=== PATIENT | female | born 1985 | race Hispanic/Latino ===

== ENCOUNTER → 2016-07-16 | Outpatient (CLI) | payer OTHER ==
[~2016-07-16] MED LIST: PREN1TAB39
--- NOTE | 2016-07-16 14:51 | Diagnostic Imaging Report ---
PROCEDURE: US OB SINGLE FETUS <14 WKS. INDICATION: Undergoing evaluation for size and dates. TECHNIQUE: Multiple real-time grayscale images were obtained of the gravid uterus transabdominally. CORRELATION STUDY: None. FINDINGS: Uterus measuring 14.3 x 8.1 x 8.4 cm, mildly prominent. There is presence of an intrauterine fluid collection compatible with gestational sac. No abnormal perigestational fluid collections. pole is present with a crown-rump length measuring 1.95 cm with estimated age of 8 weeks 4 days. This corresponds to estimated date of delivery 02/21/2017. cardiac activity at 176 beats per minute. Imaging of the adnexa is very limited with nonvisualization of either ovary. IMPRESSION: Early viable intrauterine , estimated age of 8 weeks 4 days for an estimated date of delivery 02/21/2017. Dictated by: Dictated on workstation # [id number]
== END ==
LOC: RAD 10:56
PROVIDERS: ATTEND Family Medicine
DX: Z34.81 Encounter for supervision of other normal pregnancy, first trimester (principal)
CPT/HCPCS: 76801

== ENCOUNTER → 2016-08-06 | Outpatient (CLI) | payer OTHER ==
--- NOTE | 2016-08-06 16:39 | Diagnostic Imaging Report ---
PROCEDURE: US OB single fetus <14 wks. TECHNIQUE: Multiple real-time grayscale images were obtained over the gravid uterus in various projections. INDICATION: care first trimester. Could not get heart tones in doctor's office. FINDINGS: There is a single intrauterine . The cardiac activity in the embryo is at 167 beats per minutes. The crown-rump length is at 12 weeks and 0 days. This would correspond with CATA of 02/18/17. There is a mass in the anterior myometrium in the fundal region with slight subserosal component, measuring 7.4 x 5.2 x 7.0 cm, most likely related to a fibroid. The ovaries are obscured by bowel gas. IMPRESSION: 1. Live single intrauterine . 2. A 7.4 cm mass in the anterior myometrium most likely related to fibroids. Dictated by: Dictated on workstation # [id number]
== END ==
LOC: RAD 16:06
PROVIDERS: ATTEND Family Medicine
DX: Z36 Encounter for antenatal screening of mother (principal); Z3A.12 12 weeks gestation of pregnancy; D25.9 Leiomyoma of uterus, unspecified
CPT/HCPCS: 76801

== ENCOUNTER → 2016-10-31 | Outpatient (CLI) | payer OTHER ==
--- NOTE | 2016-10-31 14:21 | Diagnostic Imaging Report ---
INDICATION: survey. TECHNIQUE: Multiple real-time grayscale images were obtained over the gravid uterus. COMPARISON: None FINDINGS: Single live intrauterine fetus. Fetus is currently transverse and active. head to maternal left. heart rate of 153 beats per minute. Placenta is anterior and not low. Amniotic fluid index is normal. survey is quite limited due to position and large maternal body habitus. kidneys and bladder are visualized and normal. stomach appears normal. spine is well visualized and normal. Biometrical measurements are as follows: Biparietal 6.2 cm, age 25 weeks 0 days. Head circumference 23.1 cm, age 25 weeks 1 days. Abdominal circumference 20.8 cm, age 25 weeks 3 days. Femur length 4.4 cm, age 24 weeks 3 days. Sonographic estimate age: 25 weeks 0 days. Sonographic estimated date of delivery: 02/13/17. Estimated Weight: 150 gm (+/- 109 gm). LMP percentile: 70%. heart rate: 153 beats per minute. number: 1 of 1. IMPRESSION: 1. Ultrasound measurements are average for 25 weeks 0 days on the current study. Previous ultrasound indicates 24 week 2 day . Sonographic EDC of 02/18/2017. 2. Very limited survey as described above due to transverse prone position and large maternal body habitus. Dictated by: Dictated on workstation # [id number]
== END ==
LOC: RAD 12:53
PROVIDERS: ATTEND Family Medicine
DX: Z36 Encounter for antenatal screening of mother (principal); Z3A.25 25 weeks gestation of pregnancy
CPT/HCPCS: 76805

== ENCOUNTER 2017-01-27 05:50 | Outpatient (CLI) | payer OTHER ==
[~2017-01-27] VITALS: Ht 147.3 cm; Wt 96.7 kg
[2017-01-27] VITALS (15 sets, daily range): BP systolic 92–172; BP diastolic 52–99
[2017-01-27 07:05] LABS: KETONES,URINE 1+ (NEGATIVE); LEUKOCYTE ESTERASE ,URINE 1+ (NEGATIVE); NITRITE,URINE NEGATIVE (NEGATIVE); PH,URINE 6.5 (5-9); PROTEIN,URINE 2+ (NEGATIVE); UROBILINOGEN,URINE 12 MG/DL (NORMAL)
[2017-01-27 07:16] LABS: BILIRUBIN,URINE 2+ (NEGATIVE); CALCIUM OXALATE CRYSTALS,UR LARGE /LPF
[2017-01-27 08:15] LABS: BASOPHILS % (AUTO) 0 % (0-10); EOSINOPHILS # (AUTO) 0.1 10^3/uL (0.0-0.3); EOSINOPHILS % (AUTO) 1 % (0-10); LYMPHOCYTES # (AUTO) 1.4 X 10^3 (1.0-4.0); LYMPHOCYTES % (AUTO) 14 % (12-44); MEAN CORPUSCULAR HEMOGLOBIN 32 PG (25-34); MEAN CORPUSCULAR HGB CONC 35 G/DL (32-36); MEAN CORPUSCULAR VOLUME 94 FL (80-99); MEAN PLATELET VOLUME 10.5 FL (7.4-10.4); MONOCYTES # (AUTO) 0.7 X 10^3 (0.0-1.0); MONOCYTES % (AUTO) 7 % (0-12); NEUTROPHILS # (AUTO) 7.4 X 10^3 (1.8-7.8); NEUTROPHILS % (AUTO) 78 % (42-75); PLATELET COUNT 251 10^3/uL (130-400); RED CELL DISTRIBUTION WIDTH 12.4 % (10.0-14.5); WHITE BLOOD COUNT 9.5 10^3/uL (4.3-11.0)
[2017-01-27 08:36] LABS: ALANINE AMINOTRANSFERASE 26 U/L (0-55); ALBUMIN 3.2 GM/DL (3.2-4.5); ANION GAP 9 MMOL/L (5-14); ASPARTATE AMINO TRANSFERASE 17 U/L (5-34); BILIRUBIN,TOTAL 0.4 MG/DL (0.1-1.0); BLOOD UREA NITROGEN 8 MG/DL (7-18); BUN/CREATININE RATIO 14; CALCIUM 8.9 MG/DL (8.5-10.1); CARBON DIOXIDE 19 MMOL/L (21-32); CHLORIDE 107 MMOL/L (98-107); CREATININE SERUM 0.59 MG/DL (0.60-1.30); GFR ESTIMATED > 60; GLUCOSE 79 MG/DL (70-105); POTASSIUM 3.9 MMOL/L (3.6-5.0); SODIUM 135 MMOL/L (135-145); TOTAL PROTEIN 6.4 GM/DL (6.4-8.2); URIC ACID 4.6 MG/DL (2.6-7.2)
[2017-01-27 09:02] LABS: PROTEIN/CREATININE RATIO 0.48
[2017-01-27] MEDS ORDERED: morphine INJ 10 MG/ML 1ML (SYR OR VIAL) IVP ONE (10:00)
[2017-01-27] MEDS ORDERED: NS IV 500 ML 500 ML IV SCH (10:00)
[2017-01-27] MEDS ORDERED: morphine INJ 10 MG/ML 1ML (SYR OR VIAL) IJ ONE (10:00)
[2017-01-27] MEDS ORDERED: LACTATED RINGERS 1,000 ML IV SCH (11:00)
[2017-01-27] MEDS ORDERED: INFLUENZA TRIvalent 2017-2018 0.5 ML/45 MCG SYR IM ONE (12:15)
[2017-01-27] MEDS ORDERED: PREN1TAB86 PO (14:22)
--- NOTE | 2017-01-27 15:10 | Consultation ---
History of Present Illness History of Present Illness Patient Consulted On([place]olina/time) 01/27/17 15:05 Date Seen by Provider: Jan 27, 2017 Time Seen by Provider: 12:00 Reason for Visit: Contractions History of Present Illness This 31 yo female is a consult from Dr. Martinez for PTC, and concern for preE. He reports that she was being follow for BP elevations in the office but this has been more recent in the last couple of visit. Reports history of 2 cesareans. She reports having regular painful contractions that started this AM , but upon my consultation IVF bolus was administered and Morphine rest was given and now the patient reports no further pain, and no contractions. Denies LOF, VB. Denies headache, vision changes, CP, SOB. Denies any other complications with the thus far. However, according to Dr. Martinez her PNC has been somewhat limited. Allergies and Home Medications Allergies Coded Allergies: NKANo Known Allergies (Unverified Allergy, Mild, 06/20/09) Home Medications Vit W-Ca,Fe,FA(<1 mg) 1 Each Tablet, 1 EACH PO DAILY, (Reported) Past Uacsiwb-Zetwed-Flkmzc Hx Patient Social History Alcohol Use: Denies Use Recreational Drug Use: No Smoking Status: Never a Smoker Recent Foreign Travel: No Contact w/Someone Who Travel: No Recent Infectious Disease Expo: No Recent Hopitalizations: No Seasonal Allergies Seasonal Allergies: No Surgeries History of Surgeries: Yes (CS x 2) Respiratory History of Respiratory Disorde: No Cardiovascular History of Cardiac Disorders: No Neurological History of Neurological Disord: No Reproductive System Expected Date of Delivery: Feb 21, 2017 Hx : 3 Hx Para: 2 Hx Total # of Abortions (Spona: 0 Hx Reproductive Disorders: No Genitourinary History of Genitourinary Disor: No Gastrointestinal History of Gastrointestinal Di: No Musculoskeletal History of Musculoskeletal Dis: No Endocrine History of Endocrine Disorders: No HEENT History of HEENT Disorders: No Cancer History of Cancer: No Psychosocial History of Psychiatric Problem: No Integumentary History of Skin or Integumenta: No Blood Transfusions History of Blood Disorders: No Family Medical History Family Medial History: Patient reports no known family medical history. Review of Systems-General Constitutional: see HPI EENTM: see HPI Respiratory: see HPI Cardiovascular: see HPI Gastrointestinal: see HPI Genitourinary: see HPI : Yes Expected Date of Delivery: Feb 21, 2017 Musculoskeletal: no symptoms reported Skin: no symptoms reported Psychiatric/Neurological: See HPI All Other Systems Reviewed Negative Unless Noted: Yes Physical Exam-General Problems Physical Exam Vital Signs Vital Sign - Last 12Hours 01/27/17 06:15 Temp 97.6 Pulse 87 Resp 18 B/P (MAP) 156/80 O2 Delivery Room Air Capillary Refill : General Appearance: WD/WN Comments SVE: per RN FT/ 50/-3 BPP: 6/8 (-2 for breathing) ROSA ISELA 9cm. EFW wnl NST Reactive BL 135 moderate variability + accels no decels. contractions rare. Laboratory Tests Test 01/27/17 06:00 01/27/17 07:55 Range/Units Urine Color HUGO H Urine Clarity SLIGHTLY CLOUDY Urine pH 6.5 5-9 Urine Specific [place] 1.025 H 1.016-1.022 Urine Protein 80 H 6-12 MG/DL Urine Glucose (UA) NEGATIVE NEGATIVE Urine Ketones 1+ H NEGATIVE Urine Nitrite NEGATIVE NEGATIVE Urine Bilirubin 2+ H NEGATIVE Urine Urobilinogen 12 H NORMAL MG/DL Urine Leukocyte Esterase 1+ H NEGATIVE Urine RBC (Auto) NEGATIVE NEGATIVE Urine RBC NONE /HPF Urine WBC 5-10 H /HPF Urine Squamous Epithelial Cells 5-10 /HPF Urine Crystals PRESENT H /LPF Urine Calcium Oxalate Crystals LARGE H /LPF Urine Bacteria TRACE /HPF Urine Casts NONE /LPF Urine Mucus NEGATIVE /LPF Urine Culture Indicated NO Urine Creatinine 167 H 30-125 MG/DL Urine Protein/Creatinine Ratio 0.48 White Blood Count 9.5 4.3-11.0 10^3/uL Red Blood Count 3.80 L 4.35-5.85 10^6/uL Hemoglobin 12.3 11.5-16.0 G/DL Hematocrit 36 35-52 % Mean Corpuscular Volume 94 80-99 FL Mean Corpuscular Hemoglobin 32 25-34 PG Mean Corpuscular Hemoglobin Concent 35 32-36 G/DL Red Cell Distribution Width 12.4 10.0-14.5 % Platelet Count 251 130-400 10^3/uL Mean Platelet Volume 10.5 H 7.4-10.4 FL Neutrophils (%) (Auto) 78 H 42-75 % Lymphocytes (%) (Auto) 14 12-44 % Monocytes (%) (Auto) 7 0-12 % Eosinophils (%) (Auto) 1 0-10 % Basophils (%) (Auto) 0 0-10 % Neutrophils # (Auto) 7.4 1.8-7.8 X 10^3 Lymphocytes # (Auto) 1.4 1.0-4.0 X 10^3 Monocytes # (Auto) 0.7 0.0-1.0 X 10^3 Eosinophils # (Auto) 0.1 0.0-0.3 10^3/uL Basophils # (Auto) 0.0 0.0-0.1 10^3/uL Sodium Level 135 135-145 MMOL/L Potassium Level 3.9 3.6-5.0 MMOL/L Chloride Level 107 98-107 MMOL/L Carbon Dioxide Level 19 L 21-32 MMOL/L Anion Gap 9 5-14 MMOL/L Blood Urea Nitrogen 8 7-18 MG/DL Creatinine 0.59 L 0.60-1.30 MG/DL Estimat Glomerular Filtration Rate > 60 BUN/Creatinine Ratio 14 Glucose Level 79 70-105 MG/DL Uric Acid 4.6 2.6-7.2 MG/DL Calcium Level 8.9 8.5-10.1 MG/DL Total Bilirubin 0.4 0.1-1.0 MG/DL Aspartate Amino Transf (AST/SGOT) 17 5-34 U/L Alanine Aminotransferase (ALT/SGPT) 26 0-55 U/L Alkaline Phosphatase 128 40-136 U/L Total Protein 6.4 6.4-8.2 GM/DL Albumin 3.2 3.2-4.5 GM/DL Assessment/Plan Assessment/Plan Admission Diagnosis/Plan Diagnosis: 31 yo @ 36.3 Uterine contractions which have resolved with hydration Mild preeclampsia Previous x 2 P: Return for delivery at 37 weeks, this was scheduled today due to mild preE and 37 weeks. PreE precautions reviewed PTL precautions reviewed. Kick count instructions reviewed. Clinical Quality Measures DVT/VTE Risk/Contraindication: Risk Factor Score Per Nursin RFS Level Per Nursing on Admit: 1=Low/No VTE PPX LOIDA DWYER DO Jan 27, 2017 3:10 pm
--- NOTE | 2017-01-27 15:23 | Diagnostic Imaging Report ---
INDICATION: Growth and biophysical profile assessment. TECHNIQUE: Multiple real-time grayscale images were obtained over the gravid uterus. COMPARISON: 10/31/2016. FINDINGS: heart rate is 130 beats per minutes. The placenta is anterior. No placenta previa. There is a fibroid measuring 9.1 x 10.4 x 5.7-cm seen anterior to the uterus. This is larger compared to prior exam. Biophysical profile assessment demonstrates lack of breathing visualization for a total BPP score of 6/8. The ROSA ISELA is 9.8 cm. The abdominal circumference is at 2.2 standard deviations above the mean. The biparietal diameter is at 3.0 standard deviations above the mean. The head circumference is at 0.2 standard deviation above the mean. The femur length is at 1.3 standard deviation below the mean. Biometrical measurements are as follows: Biparietal 9.63 cm, age 39 weeks 3 days. Head circumference 32.69 cm, age 37 weeks 1 days. Abdominal circumference 34.20 cm, age 38 weeks 1 days. Femur length 6.57 cm, age 33 weeks 6 days. Sonographic estimate age: 37 weeks 1 days. Sonographic estimated date of delivery: 02/16/2017. Estimated Weight: 3131 gm (+/- 457 gm). LMP percentile: 90%. heart rate: 130 beats per minute. number: 1 of 1. IMPRESSION: Total biophysical profile score is 6/8. The findings were given to Molly Matamoros APRN, taking care of the patient by the mri special procedures technologist performing the exam. Dictated by: Dictated on workstation # [id number]
--- NOTE | 2017-01-28 13:49 | Physician Query-Final Dx ---
ENRIQUETA JACOBSEN 01/28/17 1349: Clinic Account Progress/Dx Physician Query: Please give diagnosis Date of Service Jan 27, 2017 at 05:50 DAYO KHAN MD 02/03/17 0709: Clinic Account Progress/Dx DIAGNOSIS: Diagnosis IUP at 36w2d with mild Pre-eclampsia Previous CS ENRIQUETA JACOBSEN Jan 28, 2017 13:49 DAYO KHAN MD Feb 03, 2017 07:09
[2017-02-02] MEDS ORDERED: HYDR-3812 PO (07:49)
[2017-02-02] MEDS ORDERED: DOCU100C37 PO (07:49)
[2017-02-02] MEDS ORDERED: IBUP-1773 PO (07:49)
== END 2017-01-27 14:35 | disposition home or self-care (01) ==
LOC: WSo 05:50 → LDRP 05:51 → WSo 14:35
PROVIDERS: ATTEND Family Medicine
DX: O60.03 Preterm labor without delivery, third trimester (principal); O14.03 Mild to moderate pre-eclampsia, third trimester; O34.211 Maternal care for low transverse scar from previous cesarean delivery; Z3A.36 36 weeks gestation of pregnancy
CPT/HCPCS: 36415; 76805; 76819; 80053; 81000; 82570; 84156; 84550; 85025; 96361; 96372; 96374; 99214

== ENCOUNTER 2017-01-29 11:09 | Outpatient (CLI) | payer OTHER ==
[~2017-01-29] VITALS: Ht 147.3 cm; Wt 97.1 kg
[~2017-01-29 11:09] MED LIST changes: +PREN1TAB86 PO
[2017-01-29 11:15] VITALS: BP 147/92
== END 2017-01-29 11:30 | disposition home or self-care (01) ==
LOC: PREOP 11:09
PROVIDERS: ATTEND Obstetrics & Gynecology
DX: Z01.818 Encounter for other preprocedural examination (principal); O34.219 Maternal care for unspecified type scar from previous cesarean delivery; Z3A.00 Weeks of gestation of pregnancy not specified
CPT/HCPCS: 87081

== ENCOUNTER 2017-02-02 02:30 | Inpatient (IN) | payer OTHER ==
[2017-02-02] VITALS (7 sets, daily range): BP systolic 116–137; BP diastolic 69–80
[~2017-02-02] VITALS: Ht 147.3 cm; Wt 97.5 kg
[2017-02-02 04:02] LABS: BASOPHILS % (AUTO) 0 % (0-10); EOSINOPHILS # (AUTO) 0.1 10^3/uL (0.0-0.3); EOSINOPHILS % (AUTO) 1 % (0-10); LYMPHOCYTES # (AUTO) 1.5 X 10^3 (1.0-4.0); LYMPHOCYTES % (AUTO) 19 % (12-44); MEAN CORPUSCULAR HEMOGLOBIN 30 PG (25-34); MEAN CORPUSCULAR HGB CONC 33 G/DL (32-36); MEAN CORPUSCULAR VOLUME 90 FL (80-99); MEAN PLATELET VOLUME 11.1 FL (7.4-10.4); MONOCYTES # (AUTO) 0.7 X 10^3 (0.0-1.0); MONOCYTES % (AUTO) 9 % (0-12); NEUTROPHILS # (AUTO) 5.6 X 10^3 (1.8-7.8); NEUTROPHILS % (AUTO) 71 % (42-75); PLATELET COUNT 209 10^3/uL (130-400); RED BLOOD COUNT 3.95 10^6/uL (4.35-5.85); WHITE BLOOD COUNT 7.9 10^3/uL (4.3-11.0)
[2017-02-02] MEDS ORDERED: CITRIC ACID/SOB CIT (BICITRA) 30 ML UDC ONE (05:59)
[2017-02-02] MEDS ORDERED: METOCLOPRAMIDE INJ 10 MG/2 ML (REGLAN) ONE (05:59)
[2017-02-02] MEDS ORDERED: FAMOTIDINE 20MG/2ML IV (PEPCID) ONE (05:59)
[2017-02-02] MEDS: LACTATED RINGERS 1,000 ML IV SCH ×3 (06:00→12:37)
[2017-02-02] MEDS ORDERED: FAMOTIDINE 20MG/2ML IV (PEPCID) IV ONE (06:30)
[2017-02-02] MEDS ORDERED: CITRIC ACID/SOB CIT (BICITRA) 30 ML UDC PO ONE (06:30)
[2017-02-02] MEDS ORDERED: METOCLOPRAMIDE INJ 10 MG/2 ML (REGLAN) IV ONE (06:30)
[2017-02-02] MEDS ORDERED: ceFAZolin 2 GM/50 ML NS 50 ML ONE (06:39)
[2017-02-02] MEDS ORDERED: fentaNYL INJECTION 100 MCG/2 ML AMP ONE (07:20)
[2017-02-02] MEDS ORDERED: KETAMINE HCL 100 MG/ML 5 ML VIAL ONE (07:20)
--- NOTE | 2017-02-02 07:21 | History & Physical-OB ---
OB - Chief Complaint & HPI Date/Time Date of Admission: Date of Admission: Feb 02, 2017 at 2:30 am Time Seen by Provider: 07:00 Chief Complaint/History OB-Reason for Admission/Chief: Section Hx : 3 Hx Para: 2 Expected Date of Delivery: Feb 21, 2017 Gestational Age in Weeks: 37 Gestational Age in Days: 2 Indication for : desires repeat Other reason for admission: Mild preE at 37 weeks Admission Nurse Assessment Rev: Yes History of Labs B Pos Antibody neg RI RPR NR HBsAG NR HIV NR GC neg Allergies and Home Medications Allergies Coded Allergies: NKANo Known Allergies (Unverified Allergy, Mild, 06/20/09) Home Medications Vit W-Ca,Fe,FA(<1 mg) 1 Each Tablet, 1 EACH PO DAILY, (Reported) OB - History Hx of Present Care: Yes Ultrasounds: Normal mid trimester US Obstetrical Complications: Pre-eclampsia Medical Complications: Other (BMI > 40) Obstetrical History Hx Termination: No Hx Multiple Gestation: No Hx Stillbirth: No Hx Complication: No Hx Induced Hypertens: No Hx Maternal Gestational Diabet: No Delivery History Hx Dystocia: No Hx Large For Gestational Age I: No Hx Small for Gestational Age I: No Hx Section: Yes Hx Vaginal Delivery Post C-Sec: No Hx Blood Disorders: No Patient Past Medical History Obesity Social History/Family History Recent Infectious Disease Expo: No Alcohol Use: Denies Use Recreational Drug Use: No OB - Admission Exam Physical Exam HEENT: NCAT Heart: Rhythm Normal Lungs: Clear Abdomen: Gravid Extremities: Normal Reflexes: Normal Heart Rate: 130's Accelerations: Accelerations Present Decelerations: No Decelerations Short Term Variability: Present Usp Variability: Average (6-25) Contractions on Admission: >10 Minutes Apart Intensity: Mild Labs Laboratory Tests Test 02/02/17 03:50 Range/Units White Blood Count 7.9 4.3-11.0 10^3/uL Red Blood Count 3.95 L 4.35-5.85 10^6/uL Hemoglobin 11.8 11.5-16.0 G/DL Hematocrit 35 35-52 % Mean Corpuscular Volume 90 80-99 FL Mean Corpuscular Hemoglobin 30 25-34 PG Mean Corpuscular Hemoglobin Concent 33 32-36 G/DL Red Cell Distribution Width 14.0 10.0-14.5 % Platelet Count 209 130-400 10^3/uL Mean Platelet Volume 11.1 H 7.4-10.4 FL Neutrophils (%) (Auto) 71 42-75 % Lymphocytes (%) (Auto) 19 12-44 % Monocytes (%) (Auto) 9 0-12 % Eosinophils (%) (Auto) 1 0-10 % Basophils (%) (Auto) 0 0-10 % Neutrophils # (Auto) 5.6 1.8-7.8 X 10^3 Lymphocytes # (Auto) 1.5 1.0-4.0 X 10^3 Monocytes # (Auto) 0.7 0.0-1.0 X 10^3 Eosinophils # (Auto) 0.1 0.0-0.3 10^3/uL Basophils # (Auto) 0.0 0.0-0.1 10^3/uL OB - Assessment/Plan/Diagnosis Assessment Assessment: section Plan Plan: Section Discharge Diagnosis Diagnosis: 31 yo @ 37.2 Mild PreE BMI > 40 Previous LOIDA DWYER DO Feb 02, 2017 7:21 am
[2017-02-02] MEDS ORDERED: OXYTOCIN/NORMAL SALINE 500 ML IV SCH (07:44)
[2017-02-02] MEDS ORDERED: TETANUS,DIPTH,PERTUSS P/F (BOOSTRIX) 0.5 ML VIAL IM SCH (07:45)
[2017-02-02] MEDS ORDERED: ONDANSETRON 4 MG/2 ML (SDV) Z0FRAN IVP PRN (07:45)
[2017-02-02] MEDS ORDERED: MEASLES,MUMPS,RUBELLA 1 EA INJ SC SCH (07:45)
[2017-02-02] MEDS ORDERED: HYDROmorphone (DILAUDID) 2 MG/ML VIAL IVP PRN (07:45)
[2017-02-02] MEDS ORDERED: HYDR-3812 PO (07:49)
[2017-02-02] MEDS ORDERED: IBUP-1773 PO (07:49)
[2017-02-02] MEDS ORDERED: DOCU100C37 PO (07:49)
--- NOTE | 2017-02-02 07:50 | Discharge Inst-Women's Service ---
Discharge Inst-Women's Serv Depart Medication/Instructions New, Converted or Re-Newed RX: RX on Chart Consults/Follow Up Additional Follow Up: Yes Orders/Referrals Dr. Winn in 7-[address] Martinez in 6 weeks Activity Activity: Activity as Tolerated Driving Instructions: No Driving for 1 Week NO SMOKING: NO SMOKING Nothing Inside Vagina: No Douching, No [place], No Tampons Diet Discharge Diet: No Restrictions Symptoms to Report to : Bleeding Excessive, Pain Increased, Fever Over 101 Degrees F, Vaginal Bleeding Increase, Questions/Concerns For Any Problems or Questions: Contact Your Physician Skin/Wound Care Infection Signs and Symptoms: Increased Redness, Foul Odor of Wound, Increased Drainage, Skin Itchy or Has a Rash, Increased Swelling, Temperature Above 101 F Operative Area Clean and Dry: Keep Incision Clean/Dry Stitches/[place]/Dermabond: Dermabond, Care of Stitches Bathing Instructions: LOIDA Gu DO Feb 02, 2017 07:50
[2017-02-02] MEDS ORDERED: OXYTOCIN/NORMAL SALINE 1,000 ML IV ONE (08:24)
[2017-02-02] MEDS ORDERED: KETOROLAC 30 MG/ML VIAL ONE (08:39)
[2017-02-02] MEDS: DOCUSATE SODIUM 100 MG (COLACE) CAP PO SCH ×2 (09:00→21:18)
[2017-02-02] MEDS ORDERED: PHENYLEPHRINE 100 MCG/ML 10 ML (ANESTHESIA) SYR ONE (09:00)
[2017-02-02] MEDS ORDERED: ONDANSETRON 4 MG/2 ML (SDV) Z0FRAN ONE (09:00)
[2017-02-02] MEDS: HYDROcodone/APAP 5 MG/325 MG (LORTAB) TAB PO PRN (12:44)
[2017-02-02] MEDS ORDERED: INFLUENZA TRIvalent 2017-2018 0.5 ML/45 MCG SYR IM ONE (13:30)
[2017-02-02] MEDS: CATHETER FLUSH 10 ML SYR IV SCH ×2 (14:00→21:19)
--- NOTE | 2017-02-02 14:04 | OPERATIVE REPORT ---
DATE OF SERVICE: PREOPERATIVE DIAGNOSES: 1. A 31-year-old G3, P2 at 37 weeks and 2 days gestation. 2. Mild preeclampsia. 3. Previous section x2. 3. Morbid obesity. POSTOPERATIVE DIAGNOSES: 1. A 31-year-old G3, P2 at 37 weeks and 2 days gestation. 2. Mild preeclampsia. 3. Previous section x2. 3. Morbid obesity. PROCEDURE: Repeat low transverse section. SURGEON: Geo Dwyer D.O. FUNERAL PLANNING COUNSELOR: Dr. Gabo Martinez. ANESTHESIA: Spinal. EBL: 500 mL. URINE OUTPUT: 175 mL clear at the end of procedure. FLUIDS: 1500 mL lactate Ringer's solution. FINDINGS: A live male infant weighing 7 pounds 15 ounces, Apgars of 9 and 9. Grossly normal appearing ovaries on palpation, unable to visualize ovaries or fallopian tubes and enlarged uterus with a fundal uterine fibroid inhibiting exteriorization of the uterus approximately 4 to 5 cm in diameter. SPECIMENS SENT: Placenta. INDICATIONS FOR PROCEDURE: This 31-year-old female is a patient who had care with Dr. Martinez, a family practice provider in [facility]. Her was uncomplicated with the exception of previous section x2 as well as preeclampsia, which raised around 35 weeks. Blood pressure started to elevate. Last week, she was admitted to the hospital and found to have mild preeclampsia with a urine protein creatinine ratio just barely over 0.3. However, due to the mild elevation of blood pressures, I discussed with the patient proceeding with delivery at 37 weeks due to increased morbidity and mortality rate. After this was discussed with the patient, she was scheduled for Thursday at 37 weeks. Once Thursday came around, I discussed with the patient in the preoperative area risks of the procedure including risk of bleeding, infection, risk of damage to surrounding structures while I am working, risk of recurrent given the risk of adhesions from previous . After everything was discussed with the patient, a consent was obtained, the patient was taken to the operating room. OPERATIVE REPORT IN DETAIL: Once in the operating room, spinal anesthesia was found to be adequate. She was placed in supine position with leftward tilt, prepped and draped in normal sterile fashion. Anesthesia was tested and timeout was performed. I then proceeded with making a Pfannenstiel skin incision through the previous existing scar using knife and carried down the underlying fascia using Bovie cautery. There was a significant amount of scar tissue I encounter during this dissection. It is hard to discertain the difference between the subcutaneous tissue and her fascia as well as the thickness of her body wall makes this dissection extremely difficult. Once I identified the fascial plane, I extended laterally using the Bovie cautery. The superior aspect of the fascial incision was then grasped with Yenifer clamps, tented upward and dissected sharply off the underlying rectus muscles using Domingo scissors. The inferior aspect of the fascial incision was then grasped with Yenifer clamps, tented up and dissected off any rectus muscles in similar fashion. The rectus muscles were easily down the midline using traction, which exposed the peritoneum, which I enter as cephalad as possible. Using blunt traction, I am able to extend the peritoneal entry site and placed an Luis ring retractor into the peritoneal incision, which offers excellent lateral sidewall retraction. There is of some note, some filmy adhesions of the lower uterine segment; however, I am able to place my retractor just above these and make a low transverse incision into the vesicouterine peritoneum using a knife and bluntly dissect the peritoneal adhesions as well as the vesicouterine peritoneum off of the lower uterine segment. I proceed with my myotomy until membranes were visualized at which point, I extend the uterine incision laterally and superiorly using bandage scissors. Amniotomy was performed using Allis clamp, clear fluid is noted. The infant was found in the vertex presentation. With gentle fundal pressure and slow progression, the 's head is slowly delivered through the incision. I do call for a Kiwi vacuum extractor; however, I do not end up applying it due to the baby head coming through the incision. The nose and oropharynx were then bulb suctioned by Dr. Martinez, anterior, posterior shoulder delivered. The infant is then brought to the operative field where the cord was doubly clamped and cut and infant was taken off the operative field by Dr. Martinez for assessment. Cord blood was collected, 3-vessel cord with intact placenta delivered spontaneously thereafter. IV Pitocin is initiated to facilitate uterine contraction. Uterine fundus became firmer with bimanual massage. I am unable to exteriorize the uterus, but I do clear the endometrial cavity of all clots and debris. I then proceeded with closing the uterine incision using 0 Vicryl suture in a running locking fashion. Second layer of imbricating 0 Monocryl was placed. Excellent hemostasis was noted after doing so. I then copiously irrigated the pelvis using normal saline. There was no active bleeding noted from any dissection planes. I palpate the ovaries and fallopian tubes, these appeared to be normal. I then placed over the lower uterine segment an Interceed to prevent postoperative adhesions to the lower uterine segment. I then proceeded with closing the peritoneum and the rectus muscles in one layer due to their adhesion to each other using 3-0 Vicryl suture in running fashion. The fascia was approximated using 0 Vicryl suture in running fashion. The subcutaneous tissue was reapproximated using 3-0 plain and 3-0 Vicryl suture in interrupted fashion. The skin was then reapproximated using gabrielle. A sterile dressing and pressure dressing with adhesive white tape. The patient tolerated the procedure well and was taken to recovery in stable condition. Lap and sponge counts correct at the end of procedure. Instrument counts were correct as well. Two grams of Ancef given preoperatively for infection prophylaxis. Job ID: [id number] DocumentID: [id number] Dictated Date: 02/02/2017 09:03:13 Web Site Specialist Date: 02/02/2017 12:19:44 Dictated By: GOE DWYER DO
[2017-02-02] MEDS: KETOROLAC 30 MG/ML VIAL IVP SCH ×2 (15:20→21:18)
[2017-02-03] MEDS: HYDROcodone/APAP 5 MG/325 MG (LORTAB) TAB PO PRN ×3 (00:52→16:16)
[2017-02-03 04:55] VITALS: BP 132/90
[2017-02-03] MEDS: KETOROLAC 30 MG/ML VIAL IVP SCH (04:55)
[2017-02-03] MEDS: CATHETER FLUSH 10 ML SYR IV SCH (04:55)
[2017-02-03 06:22] LABS: BASOPHILS % (AUTO) 0 % (0-10); EOSINOPHILS # (AUTO) 0.1 10^3/uL (0.0-0.3); EOSINOPHILS % (AUTO) 1 % (0-10); LYMPHOCYTES # (AUTO) 1.7 X 10^3 (1.0-4.0); LYMPHOCYTES % (AUTO) 20 % (12-44); MEAN CORPUSCULAR HGB CONC 33 G/DL (32-36); MEAN CORPUSCULAR VOLUME 91 FL (80-99); MEAN PLATELET VOLUME 10.8 FL (7.4-10.4); MONOCYTES # (AUTO) 0.5 X 10^3 (0.0-1.0); MONOCYTES % (AUTO) 5 % (0-12); NEUTROPHILS # (AUTO) 6.3 X 10^3 (1.8-7.8); NEUTROPHILS % (AUTO) 74 % (42-75); RED CELL DISTRIBUTION WIDTH 14.1 % (10.0-14.5)
[2017-02-03 06:30] LABS: WHITE BLOOD COUNT 9.4 10^3/uL (4.3-11.0)
[2017-02-03 06:31] LABS: MEAN CORPUSCULAR HEMOGLOBIN 30 PG (25-34); PLATELET COUNT 156 10^3/uL (130-400); RED BLOOD COUNT 3.22 10^6/uL (4.35-5.85)
[2017-02-03] MEDS: IBUPROFEN 600 MG (MOTRIN) TAB PO SCH ×3 (09:41→22:26)
[2017-02-03] MEDS: DOCUSATE SODIUM 100 MG (COLACE) CAP PO SCH ×2 (09:41→21:29)
[2017-02-03 09:42] VITALS: BP 132/83
--- NOTE | 2017-02-03 10:29 | Progress Note-Standard ---
Standard Progress Note Progress Notes/Assess & Plan Date Seen by Provider: Feb 03, 2017 Time Seen by Provider: 08:15 Progress/Assessment & Plan Patient doing well POD 1 RLTCS. Reports pain well controlled. Ambulating and voiding freely. Tolerating regular diet. Vital Sign - Last 24 Hours 02/02/17 02/02/17 02/02/17 02/02/17 12:00 16:15 20:10 23:38 Temp 97.5 97.6 97.8 96.8 Pulse 85 79 80 88 Resp 18 18 18 18 B/P (MAP) 125/74 116/69 128/71 125/80 Pulse Ox 98 98 99 98 O2 Delivery Room Air Room Air Room Air Room Air 02/03/17 04:55 Temp 97.6 Pulse 88 Resp 18 B/P (MAP) 132/90 Pulse Ox 97 O2 Delivery Room Air Incision: c/d/i Laboratory Tests Test 02/03/17 05:13 Range/Units White Blood Count 9.4 4.3-11.0 10^3/uL Red Blood Count 3.22 L 4.35-5.85 10^6/uL Hemoglobin 9.6 L 11.5-16.0 G/DL Hematocrit 29 L 35-52 % Mean Corpuscular Volume 91 80-99 FL Mean Corpuscular Hemoglobin 30 25-34 PG Mean Corpuscular Hemoglobin Concent 33 32-36 G/DL Red Cell Distribution Width 14.1 10.0-14.5 % Platelet Count 156 130-400 10^3/uL Mean Platelet Volume 10.8 H 7.4-10.4 FL Neutrophils (%) (Auto) 74 42-75 % Lymphocytes (%) (Auto) 20 12-44 % Monocytes (%) (Auto) 5 0-12 % Eosinophils (%) (Auto) 1 0-10 % Basophils (%) (Auto) 0 0-10 % Neutrophils # (Auto) 6.3 1.8-7.8 X 10^3 Lymphocytes # (Auto) 1.7 1.0-4.0 X 10^3 Monocytes # (Auto) 0.5 0.0-1.0 X 10^3 Eosinophils # (Auto) 0.1 0.0-0.3 10^3/uL Basophils # (Auto) 0.0 0.0-0.1 10^3/uL Diagnosis POD1 RLTCS Mild preE, BP has stabilized since delivery Acute blood loss anemia BMI 44 P; Replace iron Continue routine PO care Anticipate dc tomorrow LOIDA DWYER DO Feb 03, 2017 10:29 am
--- NOTE | 2017-02-03 14:58 | Anesthesia-Regional Post-Op ---
Regional Patient Condition Mental Status: Alert, Oriented x3 Circulation: Same as Pre-Op Headache: Absent Sensation: Full Recovery Motor Block: Absent Post Op Complications Complications None Follow Up Care/Instructions Patient Instructions None needed. Anesthesia/Patient Condition Patient is doing well, no complaints, stable vital signs, no apparent adverse anesthesia problems. No complications reported per nursing. MICAELA ROSE CRNA Feb 03, 2017 14:58
[2017-02-03 16:16] VITALS: BP 130/83
[2017-02-03 21:35] VITALS: BP 145/90
[2017-02-04 02:15] VITALS: BP 150/97
[2017-02-04] MEDS: HYDROcodone/APAP 5 MG/325 MG (LORTAB) TAB PO PRN ×2 (02:45→08:52)
[2017-02-04] MEDS: IBUPROFEN 600 MG (MOTRIN) TAB PO SCH ×2 (04:38→11:22)
[2017-02-04 08:00] VITALS: BP 136/87
[2017-02-04] MEDS: DOCUSATE SODIUM 100 MG (COLACE) CAP PO SCH (08:52)
--- NOTE | 2017-02-04 10:06 | Progress Note-Standard ---
Standard Progress Note Progress Notes/Assess & Plan Date Seen by Provider: Feb 04, 2017 Time Seen by Provider: 10:00 Progress/Assessment & Plan Patient doing well POD 2 RLTCS. Reports pain well controlled. Ambulating and voiding freely. Tolerating regular diet. Vital Sign - Last 24 Hours 02/03/17 02/03/17 02/04/17 16:16 21:35 02:15 Temp 98.5 97.9 98.4 Pulse 108 92 83 Resp 18 18 17 B/P (MAP) 130/83 145/90 150/97 Pulse Ox 98 97 97 O2 Delivery Room Air Room Air Room Air Incision: c/d/i Diagnosis POD 2 RLTCS Mild preE, BP has stabilized since delivery Acute blood loss anemia BMI 44 P; Replace iron Continue routine PO care Anticipate dc today LOIDA DWYER DO Feb 04, 2017 10:06 am
[2017-02-04 10:25] VITALS: BP 134/80
[2017-02-04 11:00] VITALS: BP 138/83
[2017-02-04 13:45] VITALS: BP 140/88
[2017-02-04] MEDS ORDERED: LABE200T3 PO (14:07)
[2017-02-04] MEDS ORDERED: LABETALOL 200 MG (NORMODYNE) TAB PO NR (14:19)
[2017-02-04 16:20] VITALS: BP 140/88
== END 2017-02-04 16:20 | disposition home or self-care (01) | DRG 765 ==
LOC: LDRP 02:30
PROVIDERS: ADMIT Obstetrics & Gynecology; ATTEND Obstetrics & Gynecology
PROC: 3E0P05Z Introduction of Adhesion Barrier into Female Reproductive, Open Approach (ICD-10-PCS; 2017-02-02)
PROC: 10D00Z1 Extraction of Products of Conception, Low, Open Approach (ICD-10-PCS; principal; 2017-02-02 07:31)
DX: O14.03 Mild to moderate pre-eclampsia, third trimester (principal); O99.03 Anemia complicating the puerperium; D62 Acute posthemorrhagic anemia; O34.211 Maternal care for low transverse scar from previous cesarean delivery; O99.213 Obesity complicating pregnancy, third trimester; E66.01 Morbid (severe) obesity due to excess calories; Z68.41 Body mass index [BMI] 40.0-44.9, adult; Z3A.37 37 weeks gestation of pregnancy; Z37.0 Single live birth; Z23 Encounter for immunization
CPT/HCPCS: 36415; 85025; 86850; 86900; 86901; 94664

== ENCOUNTER → 2017-05-04 | Outpatient (CLI) | payer SELFPAY ==
[~2017-05-04] MED LIST changes: +ACHD5005 PO; +DOCU100C37 PO; +IBUP-1773 PO; +IOHEXOL 350 MG/ML 100 ML (OMNIPAQUE 350) VIAL IV ONE; +LABE200T3 PO; +NS 100 ML (IVPB) BAG IV ONE; +PANT40SU PO
--- NOTE | 2017-05-04 09:50 | Diagnostic Imaging Report ---
PROCEDURE: CT abdomen with and without contrast. TECHNIQUE: Multiple contiguous axial CT images of the abdomen were obtained prior to and after intravenous administration of iodinated contrast. INDICATION: Left renal mass, followup. COMPARISON: Comparison is made with recent noncontrast CT from 04/19/2017. FINDINGS: The lung bases are clear. No discrete liver mass is identified. Gallbladder is unremarkable. The pancreas and spleen are unremarkable. No adrenal mass is detected. The right kidney is unremarkable. There is a rounded mass involving the upper pole of the left kidney anteriorly measuring 2.7 cm in diameter. This does demonstrate contrast enhancement on the postcontrast images consistent with a solid renal mass. This is concerning for a small renal cell carcinoma. No hydronephrosis is seen. No central retroperitoneal lymphadenopathy is seen. The renal veins and IVC are unremarkable. The small and large bowel loops are normal caliber. There is no ascites. The bony structures are nonacute. IMPRESSION: Enhancing solid left renal mass. Features are concerning for renal cell carcinoma. No other significant abnormality is detected. Dictated by: Dictated on workstation # [id number]
== END ==
LOC: RAD 08:47
PROVIDERS: ATTEND Surgery
DX: N28.89 Other specified disorders of kidney and ureter (principal)
CPT/HCPCS: 74170

== ENCOUNTER 2017-10-20 22:52 | Day surgery (SDC) | payer OTHER ==
[~2017-10-20] VITALS: Ht 152.4 cm; Wt 95.3 kg
[~2017-10-20 22:52] MED LIST changes: -IOHEXOL 350 MG/ML 100 ML (OMNIPAQUE 350) VIAL IV ONE; -LABE200T3 PO; +LABE200T7 PO; -NS 100 ML (IVPB) BAG IV ONE
[2017-10-20] MEDS ORDERED: ONDANSETRON 4 MG/2 ML (SDV) Z0FRAN IVP ONE (23:45)
[2017-10-20] MEDS ORDERED: NS IV 1000 ML 1,000 ML IV STA (23:45)
[2017-10-20] MEDS ORDERED: fentaNYL INJECTION 100 MCG/2 ML AMP IVP STA (23:45)
--- NOTE | 2017-10-20 23:50 | ED Abdominal Pain ---
General Chief Complaint: Abdominal/GI Problems Stated Complaint: ABD PAIN Nursing Triage Note: ABDOMINAL PAIN Sepsis Screen: No Definite Risk Source of Information: Patient Exam Limitations: No Limitations, Language Barrier History of Present Illness Date Seen by Provider: Oct 20, 2017 Time Seen by Provider: 23:27 Initial Comments Here with report of right upper abdominal pain that's been going on for 2 days and this is associated with vomiting. Pain worse with eating. Sometimes it comes and goes but now is been staying and is moderate in intensity. Denies fevers, diarrhea or dysuria. All information via warranty manager line. Timing/Duration: 2-3 Days Severity/Quality: Moderate, Severe, Aching Location: RUQ Radiation: Back Activities at Onset: None Modifying Factors: Worsens With Eating; Improves With Resting Associated Symptoms: Back Pain; No Chest Pain, No Fever/Chills; Nausea/Vomiting ; No Shortness of Air, No Weakness Allergies and Home Medications Allergies Coded Allergies: NKANo Known Allergies (Unverified Allergy, Mild, 06/20/09) Home Medications Docusate Sodium 100 Mg Capsule, 100 MG PO BID PRN for CONSTIPATION-1ST LINE Prescribed by: LOIDA DWYER on 02/02/17 0749 Pantoprazole Sodium 40 Mg Grandariuskt.dr, 40 MG PO DAILY Prescribed by: BABITA PEDROZA on 04/19/17 1341 Patient Home Medication List Home Medication List Reviewed: Yes Review of Systems Constitutional: see HPI; No chills, No fever EENTM: No Symptoms Reported Respiratory: No Symptoms Reported Cardiovascular: No Symptoms Reported Gastrointestinal: See HPI Genitourinary: See HPI All Other Systems Reviewed Negative Unless Noted: Yes Past Jumqrax-Agiuwy-Kyappf Hx Past Med/Social Hx: Reviewed Nursing Past Med/Soc Hx Patient Social History Alcohol Use: Occasionally Uses Number of Drinks Today: AA Alcohol Beverage of Choice: Beer Recreational Drug Use: No Smoking Status: Never a Smoker 2nd Hand Smoke Exposure: No Recent Foreign Travel: No Contact w/Someone Who Travel: No Recent Infectious Disease Expo: No Recent Hopitalizations: No Immunizations Up To Date Tetanus Booster (TDap): Unknown Seasonal Allergies Seasonal Allergies: No Past Medical History Surgeries: Yes (CS x 3, left kidney tumor removed) Abdominal (upper endoscopy), Section Respiratory: No Cardiac: No Neurological: No Reproductive Disorders: No Genitourinary: No Gastrointestinal: No Musculoskeletal: No Endocrine: No HEENT: No Cancer: No Psychosocial: No Integumentary: No Blood Disorders: No Family Medical History Reviewed Nursing Family Hx Patient reports no known family medical history. No Pertinent Family Hx, Other Conditions/Hx Physical Exam Vital Signs Vital Signs - First Documented 10/20/17 23:00 Temp 98.1 Pulse 83 Resp 18 B/P (MAP) 160/104 (122) Pulse Ox 98 O2 Delivery Room Air Capillary Refill : Less Than 3 Seconds Height/Weight/BMI Height: 5', 0.00" Weight: 197lbs 8.0oz, [id number] Method:Estimated ,38.6BMI General Appearance: WD/WN, no apparent distress HEENT: PERRL/EOMI, pharynx normal Neck: full range of motion, supple Respiratory: lungs clear, normal breath sounds Cardiovascular: regular rate, rhythm, no murmur Gastrointestinal: soft; No guarding, No rebound; tenderness (right upper quadrant) Extremities: non-tender, normal inspection Neurologic/Psychiatric: alert, oriented x 3 Skin: normal color, warm/dry Progress/Results/Core Measures Results/Orders Lab Results Laboratory Tests Test 10/21/17 00:00 Range/Units White Blood Count 6.4 4.3-11.0 10^3/uL Red Blood Count 4.62 4.35-5.85 10^6/uL Hemoglobin 12.3 11.5-16.0 G/DL Hematocrit 38 35-52 % Mean Corpuscular Volume 82 80-99 FL Mean Corpuscular Hemoglobin 27 25-34 PG Mean Corpuscular Hemoglobin Concent 33 32-36 G/DL Red Cell Distribution Width 14.5 10.0-14.5 % Platelet Count 284 130-400 10^3/uL Mean Platelet Volume 9.6 7.4-10.4 FL Neutrophils (%) (Auto) 82 H 42-75 % Lymphocytes (%) (Auto) 13 12-44 % Monocytes (%) (Auto) 5 0-12 % Eosinophils (%) (Auto) 0 0-10 % Basophils (%) (Auto) 0 0-10 % Neutrophils # (Auto) 4.8 1.8-7.8 X 10^3 Lymphocytes # (Auto) 0.7 L 1.0-4.0 X 10^3 Monocytes # (Auto) 0.3 0.0-1.0 X 10^3 Eosinophils # (Auto) 0.0 0.0-0.3 10^3/uL Basophils # (Auto) 0.0 0.0-0.1 10^3/uL Sodium Level 140 135-145 MMOL/L Potassium Level 4.5 3.6-5.0 MMOL/L Chloride Level 106 98-107 MMOL/L Carbon Dioxide Level 21 21-32 MMOL/L Anion Gap 13 5-14 MMOL/L Blood Urea Nitrogen 11 7-18 MG/DL Creatinine 0.66 0.60-1.30 MG/DL Estimat Glomerular Filtration Rate > 60 BUN/Creatinine Ratio 17 Glucose Level 168 H 70-105 MG/DL Calcium Level 9.1 8.5-10.1 MG/DL Total Bilirubin 2.0 H 0.1-1.0 MG/DL Aspartate Amino Transf (AST/SGOT) 401 H 5-34 U/L Alanine Aminotransferase (ALT/SGPT) 633 H 0-55 U/L Alkaline Phosphatase 215 H 40-136 U/L Total Protein 7.6 6.4-8.2 GM/DL Albumin 4.3 3.2-4.5 GM/DL Amylase Level 51 25-125 U/L Lipase 27 8-78 U/L Serum Test, Qualitative NEGATIVE NEGATIVE My Orders Orders - LYNETTE MCCOY MD Amylase (10/20/17 23:45) Cbc With Automated Diff (10/20/17 23:45) Comprehensive Metabolic Panel (10/20/17 23:45) Hcg,Qualitative Serum (10/20/17 23:45) Lipase (10/20/17 23:45) Ondansetron Injection (Zofran Injectio (10/20/17 23:45) Ns Iv 1000 Ml (Sodium Chloride 0.9%) (10/20/17 23:45) Saline Lock/Iv-Start (10/20/17 23:45) Fentanyl Injection (Sublimaze Injection (10/20/17 23:45) Medications Given in ED Current Medications Medications Dose Ordered Sig/Yolie Route Start Time Stop Time Status Last Admin Dose Admin Ondansetron HCl 4 mg ONCE ONCE IVP 10/20/17 23:45 10/20/17 23:47 DC 10/21/17 00:12 4 MG Vital Signs/I&O 10/20/17 23:00 Temp 98.1 Pulse 83 Resp 18 B/P (MAP) 160/104 (122) Pulse Ox 98 O2 Delivery Room Air Blood Pressure Mean: 122 Progress Progress Note : Progress Note Seen and evaluated. IV, labs, normal saline 1 L bolus, Zofran 4 mg IV and fentanyl 50 g IV ordered. Monitor patient. 0125: Pain is controlled. Labs would indicate cholecystitis with liver dysfunction. I have discussed the case with Dr. Alex at 0115 and with the patient now via warranty manager line. Patient to be admitted with ultrasound in the morning and likely cholecystectomy later today. Patient and family agree with plan. Admit, observation status. Rocephin 1 g IV now. Departure Communication (Admissions) Time/Spoke to Admitting Phy: 01:10 Impression Primary Impression: Acute cholecystitis Disposition: 09 ADMITTED INPATIENT Condition: Critical Admissions Decision to Admit Reason: Admit from ER (General) Decision to Admit/Date: Oct 21, 2017 Time/Decision to Admit Time: 01:10 Departure-Patient Inst. Referrals: NO,LOCAL PHYSICIAN (PCP/Family) Primary Care Physician LYNETTE MCCOY MD Oct 20, 2017 23:50
[2017-10-21 00:23] LABS: BASOPHILS % (AUTO) 0 % (0-10); EOSINOPHILS % (AUTO) 0 % (0-10); LYMPHOCYTES # (AUTO) 0.7 X 10^3 (1.0-4.0); LYMPHOCYTES % (AUTO) 13 % (12-44); MEAN CORPUSCULAR HGB CONC 33 G/DL (32-36); MEAN CORPUSCULAR VOLUME 82 FL (80-99); MEAN PLATELET VOLUME 9.6 FL (7.4-10.4); MONOCYTES # (AUTO) 0.3 X 10^3 (0.0-1.0); MONOCYTES % (AUTO) 5 % (0-12); NEUTROPHILS # (AUTO) 4.8 X 10^3 (1.8-7.8); NEUTROPHILS % (AUTO) 82 % (42-75); RED CELL DISTRIBUTION WIDTH 14.5 % (10.0-14.5)
[2017-10-21 00:25] LABS: HEMATOCRIT 38 % (35-52); HEMOGLOBIN 12.3 G/DL (11.5-16.0); MEAN CORPUSCULAR HEMOGLOBIN 27 PG (25-34); PLATELET COUNT 284 10^3/uL (130-400); RED BLOOD COUNT 4.62 10^6/uL (4.35-5.85); WHITE BLOOD COUNT 6.4 10^3/uL (4.3-11.0)
[2017-10-21 01:05] LABS: ALANINE AMINOTRANSFERASE 633 U/L (0-55); ALBUMIN 4.3 GM/DL (3.2-4.5); ALKALINE PHOSPHATASE 215 U/L (40-136); AMYLASE 51 U/L (25-125); BUN/CREATININE RATIO 17; CALCIUM 9.1 MG/DL (8.5-10.1); CARBON DIOXIDE 21 MMOL/L (21-32); CHLORIDE 106 MMOL/L (98-107); CREATININE SERUM 0.66 MG/DL (0.60-1.30); GFR ESTIMATED > 60; GLUCOSE 168 MG/DL (70-105); LIPASE 27 U/L (8-78); POTASSIUM 4.5 MMOL/L (3.6-5.0); SODIUM 140 MMOL/L (135-145); TOTAL PROTEIN 7.6 GM/DL (6.4-8.2)
[2017-10-21] MEDS ORDERED: cefTRIAXone INJECTION 1,000 MG in NS (IVPB) 50 ML IV ONE (01:45)
[2017-10-21 04:28] VITALS: BP 126/72
[2017-10-21] MEDS: NS IV 1000 ML 1,000 ML IV SCH ×3 (04:54→22:15)
[2017-10-21] MEDS ORDERED: ONDANSETRON 4 MG/2 ML (SDV) Z0FRAN IV PRN (05:00)
[2017-10-21] MEDS ORDERED: fentaNYL INJECTION 100 MCG/2 ML AMP IVP PRN (06:00)
[2017-10-21 08:00] VITALS: BP 122/68
[2017-10-21] MEDS ORDERED: ceFAZolin 2 GM IV Premixed 50 ML IV ONE (09:45)
--- NOTE | 2017-10-21 09:55 | Consultation ---
History of Present Illness History of Present Illness Patient Consulted On(carolina/time) 10/21/17 09:47 Time Seen by Provider: 09:21 History of Present Illness Surgery asked to see regarding RUQ pain. HPI per ED: Here with report of right upper abdominal pain that's been going on for 2 days and this is associated with vomiting. Pain worse with eating. Sometimes it comes and goes but now is been staying and is moderate in intensity. Denies fevers, diarrhea or dysuria. All information via glass scullion line. Timing/Duration: 2-3 Days Severity/Quality: Moderate, Severe, Aching Location: RUQ Radiation: Back Activities at Onset: None Modifying Factors: Worsens With Eating; Improves With Resting Associated Symptoms: Back Pain; No Chest Pain, No Fever/Chills; Nausea/Vomiting ; No Shortness of Air, No Weakness When I saw pt this am she is reporting her pain as 9 out of 10. She states she did have some nausea but no vomiting. Pain is worse with fatty foods. Radiates to her back and is sharp. 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) Smoking Status: Never a Smoker 2nd Hand Smoke Exposure: No Recent Foreign Travel: No Contact w/Someone Who Travel: No Recent Infectious Disease Expo: No Recent Hopitalizations: No Physical Abuse Screen: No Sexual Abuse: No (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) Immunizations Up To Date Tetanus Booster (TDap): Unknown Seasonal Allergies Seasonal Allergies: No Surgeries History of Surgeries: Yes (CS x 3, left kidney tumor removed) Surgeries: Abdominal (upper endoscopy), Section, Nephrectomy (left) Respiratory History of Respiratory Disorde: No Cardiovascular History of Cardiac Disorders: No Neurological History of Neurological Disord: No Reproductive System Hx Reproductive Disorders: No Genitourinary History of Genitourinary Disor: No Gastrointestinal History of Gastrointestinal Di: No Musculoskeletal History of Musculoskeletal Dis: No Endocrine History of Endocrine Disorders: No HEENT History of HEENT Disorders: No Cancer History of Cancer: No Psychosocial History of Psychiatric Problem: No Integumentary History of Skin or Integumenta: No Blood Transfusions History of Blood Disorders: No Family Medical History Significant Family History: No Pertinent Family Hx, Diabetes (denies), Hypertension (denies) Family Medial History: Patient reports no known family medical history. Review of Systems-General Constitutional: No chills, No diaphoresis, No weakness EENTM: No hearing loss, No blurred vision, No vision loss, No mouth pain, No mouth swelling Respiratory: No cough, No dyspnea on exertion Cardiovascular: No chest pain, No edema, No palpitations Gastrointestinal: RUQ; No jaundice; nausea Genitourinary: No dysuria, No frequency, No hematuria Musculoskeletal: No joint pain, No muscle pain, No muscle stiffness Skin: No change in color, No change in hair/nails Psychiatric/Neurological: Denies Anxiety, Denies Depressed, Denies Seizure, Denies Tremors Other pt denies any abnormal bleeding or bruising, no heat or cold intolerance Physical Exam-General Problems Physical Exam Vital Signs Vital Signs - First Documented 10/20/17 23:00 Temp 98.1 Pulse 83 Resp 18 B/P (MAP) 160/104 (122) Pulse Ox 98 O2 Delivery Room Air Capillary Refill : Less Than 3 Seconds General Appearance: WD/WN, mild distress, obese (morbidly) Eyes: Bilateral Eye PERRL, Bilateral Eye EOMI HEENT: pharynx normal; No scleral icterus (R), No scleral icterus (L) Neck: non-tender, full range of motion, supple, normal inspection Respiratory: chest non-tender, lungs clear, normal breath sounds, no respiratory distress, no accessory muscle use Cardiovascular: regular rate, rhythm, no edema, no murmur Gastrointestinal: soft, no organomegaly, tenderness (RUQ) Back: normal inspection, no CVA tenderness, no vertebral tenderness Extremities: normal range of motion, non-tender, normal inspection, no pedal edema, no calf tenderness, normal capillary refill Neurologic/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: 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, no motor/sensory deficits, alert, normal mood/affect, oriented x 3 Skin: normal color, warm/dry Lymphatic: no adenopathy (neck, axilla or groin) Data Review Labs Laboratory Tests 10/21/17 00:00: White Blood Count 6.4, Red Blood Count 4.62, Hemoglobin 12.3, Hematocrit 38, Mean Corpuscular Volume 82, Mean Corpuscular Hemoglobin 27, Mean Corpuscular Hemoglobin Concent 33, Red Cell Distribution Width 14.5, Platelet Count 284, Mean Platelet Volume 9.6, Neutrophils (%) (Auto) 82H, Lymphocytes (%) (Auto) 13 , Monocytes (%) (Auto) 5, Eosinophils (%) (Auto) 0, Basophils (%) (Auto) 0, Neutrophils # (Auto) 4.8, Lymphocytes # (Auto) 0.7L, Monocytes # (Auto) 0.3, Eosinophils # (Auto) 0.0, Basophils # (Auto) 0.0, Sodium Level 140, Potassium Level 4.5, Chloride Level 106, Carbon Dioxide Level 21, Anion Gap 13, Blood Urea Nitrogen 11, Creatinine 0.66, Estimat Glomerular Filtration Rate > 60, BUN/ Creatinine Ratio 17, Glucose Level 168H, Calcium Level 9.1, Total Bilirubin 2.0H , Aspartate Amino Transf (AST/SGOT) 401H, Alanine Aminotransferase (ALT/SGPT) 633H, Alkaline Phosphatase 215H, Total Protein 7.6, Albumin 4.3, Amylase Level 51, Lipase 27, Serum Test, Qualitative NEGATIVE Assessment/Plan Assessment/Plan Assessment/Plan Acute Cholelithiasis/Cholecystitis Pt has RUQ pain, worse with fatty foods and had US today that was read by radiologist as stones in the GB, no wall thickening but the duct was mildly enlarged at 6.5mm. I believe this is an acute Cholecystitis and pt would be helped by cholecystectomy. Procedure discussed with pt; risks and complications not limited to pain, bleeding, infection, scar, damage to bowel or bile duct and need for further procedure. All Questions answered to their satisfaction. Plan for Lap eze with IOC, possible open. Pt getting IVF, pain control and IV ABX. Clinical Quality Measures DVT/VTE Risk/Contraindication: Risk Factor Score Per Nursin RFS Level Per Nursing on Admit: 1=Low/No VTE PPX BABITA PEDROZA DO Oct 21, 2017 09:55
--- NOTE | 2017-10-21 10:00 | Diagnostic Imaging Report ---
PROCEDURE: US Gallbladder. TECHNIQUE: Multiple real-time grayscale images were obtained over the right upper quadrant in various projections. INDICATION: Right upper quadrant pain. FINDINGS: The liver is normal in size 17.0 cm. There is some increased echogenicity throughout the liver suggestive of hepatic steatosis. No discrete liver mass is identified. Gallbladder does contain multiple small stones in the region of the gallbladder neck. No wall thickening is identified. No pericholecystic fluid is seen. Extrahepatic bile duct is minimally prominent at 6.5 mm. Pancreas is poorly visualized due to bowel gas. The right kidney is unremarkable. There is no ascites. IMPRESSION: 1. Hepatic steatosis. 2. Cholelithiasis without evidence of acute cholecystitis. Extrahepatic bile duct is minimally prominent but no definite common duct stones are visualized. Dictated by: Dictated on workstation # [id number]
[2017-10-21] MEDS ORDERED: proPOfol 200 MG/20 ML (DIPRIVAN) VIAL IV ONE (10:38)
[2017-10-21] MEDS ORDERED: LIDOCAINE PF 2% 5 ML (XYLOCAINE) VIAL ONE (10:38)
[2017-10-21] MEDS ORDERED: MIDAZOLAM 2 MG/2 ML (VERSED) VIAL ONE (10:38)
[2017-10-21] MEDS ORDERED: fentaNYL INJECTION 100 MCG/2 ML AMP ONE (10:38)
[2017-10-21] MEDS ORDERED: ROCURONIUM 10 MG/ML 5 ML SYRINGE IV ONE (10:38)
[2017-10-21] MEDS ORDERED: DEXAMETHASONE 10 MG/ML (DECADRON) 1 ML VIAL ONE (10:38)
[2017-10-21] MEDS ORDERED: SEVOFLURANE (ULTANE) 15 ML INHAL SOLN ONE ×7 (10:38→13:22)
[2017-10-21] MEDS ORDERED: ONDANSETRON 4 MG/2 ML (SDV) Z0FRAN ONE (10:38)
[2017-10-21] MEDS ORDERED: LIDOCAINE/EPI 1%-1:200,000 (XYLOCAINE) 10 ML VIAL ONE (10:51)
[2017-10-21] MEDS: LACTATED RINGERS 1,000 ML IV PRN ×2 (11:12→13:00)
[2017-10-21] MEDS ORDERED: ceFAZolin 1,000 MG (ANCEF) VIAL ONE (11:28)
--- NOTE | 2017-10-21 12:50 | Diagnostic Imaging Report ---
Indication: Fluoroscopy for intraoperative cholangiogram. The patient has cholelithiasis. Fluoroscopy was provided in the OR during intraoperative cholangiogram. 23 seconds of fluoroscopy was utilized. Images demonstrate contrast being injected via the cystic duct remnant. Intrahepatic ducts are not dilated. There is some prominence to the extrahepatic duct but no definite filling defects are seen. Impression: Fluoroscopy for intraoperative cholangiogram. Dictated by: Dictated on workstation # [id number]
--- NOTE | 2017-10-21 13:07 | Progress Note-Post Operative ---
Post-Operative Progess Note Surgeon (s)/Spray Gunner (s) Surgeon BABITA PEDROZA DO Spray Gunner: Abi Pre-Operative Diagnosis Abdominal pain, Elevated LFT's, Cholelithiasis Post-Operative Diagnosis Choledochalithiasis with obstruction Acute cholecystitis Morbid Obesity Procedure & Operative Findings Date of Procedure 10/21/17 Procedure Performed/Findings Lap eze with IOC Anesthesia Type GET Estimated Blood Loss Estimated blood loss (mL): 50ml Specimens/Packing Specimens Removed GB and contents BABITA PEDROZA DO Oct 21, 2017 13:07
[2017-10-21] MEDS ORDERED: NEOSTIGMINE 1 MG/ML 5 ML SYRINGE ONE (13:23)
[2017-10-21] MEDS ORDERED: GLYCOPYRROLATE 0.2 MG/ML (ROBINUL) 2 ML VIAL ONE ×2 (13:23→13:24)
[2017-10-21] MEDS ORDERED: SUCCINYLCHOLINE INJ 100 MG/5 ML SYR ONE (13:26)
[2017-10-21] MEDS ORDERED: ONDANSETRON 4 MG/2 ML (SDV) Z0FRAN IVP PRN (13:30)
[2017-10-21] MEDS: morphine INJ 10 MG/ML 1ML (SYR OR VIAL) IVP PRN ×2 (13:30→13:45)
[2017-10-21] MEDS ORDERED: morphine INJ 10 MG/ML 1ML (SYR OR VIAL) ONE (13:35)
[2017-10-21 16:10] VITALS: BP 107/59
[2017-10-21 19:50] VITALS: BP 128/72
--- NOTE | 2017-10-21 20:02 | OPERATIVE REPORT ---
DATE OF SERVICE: PREOPERATIVE DIAGNOSIS: Acute cholecystitis. POSTOPERATIVE DIAGNOSES: 1. Acute cholecystitis with choledocholithiasis with obstruction. 2. Morbid obesity. PROCEDURE: Laparoscopic cholecystectomy, intraoperative cholangiogram. SURGEON: Salazar Dorman DO. MARRIAGE COUNSELOR: Andi Alex DO. ANESTHESIA: General endotracheal tube. SPECIMEN: Gallbladder and contents. BLOOD LOSS: Approximately 50 mL. FLUIDS: Per anesthesia. POSTOPERATIVE CONDITION: Stable. INDICATION FOR PROCEDURE: The patient is a 32-year-old female who came in with right upper quadrant pain, mildly elevated LFTs and common bile duct was mildly dilated to 6.5 mm. FINDINGS: The patient had adhesions of the gallbladder usually indicative of acute cholecystitis. She also had edema and a cholangiogram showed stones blocking the common bile duct, no spillage of dye into the small intestine. PROCEDURE NOTE: After informed consent was obtained, the patient was brought to the operating room, placed on the operating table in supine position. She was sterilely prepped and draped in normal fashion. Local lidocaine was used to infiltrate the skin above the umbilicus. Made an incision with #11 blade, carried down through the skin into the subcutaneous tissue, then deepened down to subcutaneous tissue with Bovie electrocautery down to the fascia. The fascia was incised with electrocautery and bluntly entered the abdomen, swept a finger around, placed 0 Vicryl [id number] suture and placed an 11 mm trocar port under direct visualization. Created pneumoperitoneum and then placed 3 more ports in normal fashion using local lidocaine, 11 blade for stab incision and Versed system, all done under direct visualization, 1 in the subxiphoid and 2 in the right upper quadrant. The patient was then placed in reverse Trendelenburg, slightly rotated to the left. Upon entry, noted adhesions of the gallbladder. These were carefully taken down with Bovie electrocautery, then grasping the gallbladder at the fundus, taken in a superior direction, tried to grasp down to Parker's pouch. There were a lot of adhesions on the gallbladder. These were also taken down with the Bovie electrocautery as well as blunt dissection, finally able to grasp down to Albina's pouch. Because of the patient's body habitus and a dilated stomach, had a little bit of a difficult time trying to get out the cystic duct and cystic artery, able to finally get around the cystic duct, but while trying to get around, a little bit of bleeding occurred, able to clip this with some clips to control the bleeding, able to get around the cystic duct, placed clips distally and then cut long term through Metzenbaum scissors. Upon cutting, able to express 2 stones, pictures taken and then placed a cholangiogram catheter and shot a cholangiogram, got good spillage down the long cystic duct and into the common bile duct; however, it stopped at the distal portion of the common bile duct, did not go into the small intestine. It did go up into the common hepatic and right and left hepatics. At this point, removed the cholangiogram catheter and placed 2 clips proximally on the cystic duct and cut the cystic duct with Metzenbaum scissors, started dissecting some more, encountered probably the main branch of the cystic artery, clipped this once proximally and once distally and then found a posterior branch and clipped this once proximally and once distally and then cut these with Metzenbaum scissors next took the gallbladder off the bed of the liver with L-hook cautery. Once it was completely removed, placed a bag in the abdomen and placed the gallbladder in the bag and then duct stone that had fallen out of the cystic duct. Placed this in the bag and then removed this through a supraumbilical incision. Placed the port back in the abdomen, copiously irrigated with normal saline. Hemostasis was obtained in the bed of liver with L-hook cautery. There was no bleeding from the distal portion, took picture of the clips. There are multiple clips down in the arteries, no bleeding at the end of the case. At this time, then placed the patient back supine and copiously irrigated with normal saline, suctioned this out. There was some bleeding when we were trying to control the first cystic artery and finally get around the cystic duct, but it stopped before even did the cholangiogram and was not bleeding at the end of the case. We did use clips to stop it. Again, no bleeding at the end of the case. Removed all ports under direct visualization, suctioned out the pneumoperitoneum as well as allowed it to escape, then closed the supraumbilical incision, closed the fascia with 0 Vicryl suture previously placed. Copiously irrigated all incisions with normal saline, closing the 3 small 5 mm incisions with single interrupted 4-0 undyed Monocryl subcuticular stitch. Closed the supraumbilical incision with three 4-0 undyed Monocryl subcuticular stitches. Area was cleaned and dried and Dermabond placed. The patient was then transferred to recovery room in stable condition. Sponge and needle counts were correct at the end of the case. I spoke to Dr. Jackson hunt at [facility] in [place] to be able to transfer this patient for her needed ERCP. Dr. Alex assisted with making incisions, holding the gallbladder, identifying anatomy and closing incisions. Job ID: [id number] DocumentID: [id number] Dictated Date: 10/21/2017 15:01:25 Archivist Military History Date: 10/21/2017 20:02:32 Dictated By: DO BENI LAURENT
--- NOTE | 2017-10-22 08:06 | Anesthesia-General Post-Op ---
General Patient Condition Mental Status/LOC: Same as Preop Cardiovascular: Satisfactory Nausea/Vomiting: Absent Respiratory: Satisfactory Pain: Controlled Complications: Absent Post Op Complications Complications None Follow Up Care/Instructions Patient Instructions None needed. Anesthesia/Patient Condition Patient Condition Patient is doing well, no complaints, stable vital signs, no apparent adverse anesthesia problems. No complications reported per nursing. D/C home per [facility] Criteria: Yes ARLETH RUVALCABA CRNA Oct 22, 2017 08:06
--- OUTSIDE RECORDS SUMMARY | 2017-10-23 09:56 | XMS REPORT | Referral Summary ---
Author Author [facility] Organization [facility] Address Unknown Phone Unavailable Care Team Providers Care Perforator Name Role Phone PROVIDER, NOTINSYSTEM PCP Unavailable Encounter [facility] Date(s): 07/10/17 - 07/10/17 [facility] [address] [place] [address]- Encounter Diagnosis Cancer of left kidney parenchyma (Discharge Diagnosis) - 07/10/17 Discharge Disposition: 01-Home or Self Care Attending Physician: Alan Aponte MD Admitting Physician: Alan Aponte MD Vital Signs Most recent to 1 oldest [Reference Range]: Blood Pressure 132/84 mmHg [90-140/60-90 mmHg] (07/10/17 10:52 AM) Problem List Condition Effective Dates Status Health Status Informant Acute Active pain(Confirmed) GERD Active patient (gastroesophageal reflux disease)(Confirmed) No Chronic Problems Active Allergies, Adverse Reactions, Alerts No Known Medication Allergies Medications pantoprazole 40 mg oral delayed release tablet mg tabs, Oral, Daily, 0 Refill(s) Start Date: 05/12/17 Status: Ordered Results Hematology Most recent to 1 oldest [Reference Range]: WBC [4.8-10.8 5.5 10*3/uL 10*3/uL] (07/10/17 12:00 PM) RBC [4.00-5.20] 4.55 (07/10/17 12:00 PM) Hgb [12.0-16.0 12.4 gm/dL gm/dL] (07/10/17 12:00 PM) Hct [37.0-47.0 %] 40.1 % (07/10/17 12:00 PM) MCV [82.0-99.0 fL] 88.1 fL (07/10/17 12:00 PM) MCH [27.0-32.0 pg] 27.3 pg (07/10/17 12:00 PM) MCHC [32.0-36.0 30.9 gm/dL gm/dL] *LOW* (07/10/17 12:00 PM) RDW [11.5-14.5 %] 13.0 % (07/10/17 12:00 PM) Platelet [150-400 413 10*3/uL 10*3/uL] *HI* (07/10/17 12:00 PM) MPV [8.8-14.8 fL] 10.3 fL (07/10/17 12:00 PM) Immature 0.0 % Granulocytes (07/10/17: PM) [0.0-1.0 %] Neutrophils [51-75 60 % %] (07/10/17 12:00 PM) Lymphocytes [20-46 31 % %] (07/10/17 12:00 PM) Monocytes [4-11 %] 6 % (07/10/17 12:00 PM) Eosinophils [0-4 %] 2 % (07/10/17 12:00 PM) Basophils [0-2 %] 1 % (07/10/17 12:00 PM) Neutro Absolute 3.27 [1.90-7.00] (07/10/17 12:00 PM) Lymph Absolute 1.67 [0.80-3.30] (07/10/17 12:00 PM) [place] Absolute 0.34 [0.30-1.00] (07/10/17 12:00 PM) Eos Absolute 0.13 [0.00-0.50] (07/10/17 12:00 PM) Baso Absolute 0.04 [0.00-0.20] (07/10/17 12:00 PM) Nucleated RBC 0.0 /100 WBC Automated [0 /100 (07/10/17 12:00 PM) WBC] Chemistry Most recent to 1 oldest [Reference Range]: Sodium Lvl [135-144 139 mEq/L mEq/L] (07/10/17 12:00 PM) Potassium Lvl 4.3 mEq/L [3.5-5.2 mEq/L] (07/10/17 12:00 PM) Chloride [99-111 106 mEq/L mEq/L] (07/10/17 12:00 PM) CO2 [22-31 mEq/L] 23 mEq/L (07/10/17 12:00 PM) AGAP [3-20 mEq/L] 10 mEq/L (07/10/17 12:00 PM) BUN [7-19 mg/dL] 8 mg/dL (07/10/17 12:00 PM) Glucose Lvl [70-99 111 mg/dL mg/dL] *HI* (07/10/17 12:00 PM) Creatinine Lvl 0.60 mg/dL [0.57-1.11 mg/dL] (07/10/17 12:00 PM) eGFR [>60 mL/min] >60 mL/min 1 (07/10/17 12:00 PM) Calcium Lvl 9.7 mg/dL [8.4-10.2 mg/dL] (07/10/17 12:00 PM) 1Result Comment: Multiply eGFR results by 1.21 for race. Immunizations No data available for this section Procedures Procedure Date Related Diagnosis Body Site Status Collection of venous blood by venipuncture 07/10/17 Completed Nephrectomy Robotic1 06/26/17 Completed Caesarean section2 Completed Esophagoduodenostomy Completed 1auto-populated from documented surgical case [id number], 2009, 2015 Social History Social History Type Response Smoking Status Never (less than 100 in lifetime) entered on: 06/26/17 Assessment and Plan Extracted from: Title: Office Visit Note Author: Alan Aponte MD Date: 07/10/17 Cancer of left kidney parenchyma I discussed the pathology results. Discussed the long-termcancer specific outcomeswhich are very goodwith disc pathology. Emphasized the need for continued follow-up. We will get blood work up todaynext in follow-up in 6 months [address]with and without contrast. Patient was seenwith a senior construction project manager. Ordered: CT Abdomen w/ + w/o Contrast
--- OUTSIDE RECORDS SUMMARY | 2017-10-23 09:56 | XMS REPORT | Referral Summary ---
Author Author [facility] Organization [facility] Address Unknown Phone Unavailable Care Team Providers Care Air Traffic Systems Technician Name Role Phone PROVIDER, NOTINSYSTEM PCP Unavailable Encounter [facility] [id number] Date(s): 06/26/17 - 06/27/17 [facility] [address] [place] [address]- Encounter Diagnosis Left renal mass (Discharge Diagnosis) - 06/27/17 Discharge Disposition: 01-Home or Self Care Attending Physician: Alan Aponte MD Admitting Physician: Alan Aponte MD Vital Signs Most recent to 1 oldest [Reference Range]: Temperature Oral 37.1 degC [35.8-37.3 degC] (06/27/17 12:50 PM) Temperature Temporal 36.9 degC Artery [36.3-37.8 (06/26/17 11:40 AM) degC] Peripheral Pulse 75 bpm Rate [60-100 bpm] (06/27/17 12:50 PM) Heart Rate Monitored 82 bpm [60-100 bpm] (06/26/17 11:55 AM) Respiratory Rate 18 br/min [14-20 br/min] (06/27/17 12:50 PM) Blood Pressure 129/78 mmHg [90-140/60-90 mmHg] (06/27/17 12:50 PM) Mean Arterial 120 mmHg Pressure, Cuff (06/26/17 11:55 AM) SpO2 98 % (06/27/17 12:50 PM) Problem List Condition Effective Dates Status Health Status Informant Acute Active pain(Confirmed) GERD Active patient (gastroesophageal reflux disease)(Confirmed) No Chronic Problems Active Allergies, Adverse Reactions, Alerts No Known Medication Allergies Medications [place] 5 mg-325 mg oral tablet 1 tabs, Oral, q6hr, as needed for pain, X 10 days, # 30 tabs, 0 Refill(s), other reason (Rx) Start Date: 06/27/17 Stop Date: 07/07/17 Status: Ordered pantoprazole 40 mg oral delayed release tablet mg tabs, Oral, Daily, 0 Refill(s) Start Date: 05/12/17 Status: Ordered Results Hematology Most recent to 1 oldest [Reference Range]: WBC [4.8-10.8 10.1 10*3/uL 10*3/uL] (06/26/17 11:25 AM) RBC [4.00-5.20] 3.97 *LOW* (06/26/17 11:25 AM) Hgb [12.0-16.0 10.4 gm/dL gm/dL] *LOW* (06/27/17 4:43 AM) Hct [37.0-47.0 %] 32.5 % *LOW* (06/27/17 4:43 AM) MCV [82.0-99.0 fL] 86.9 fL (06/26/17 11:25 AM) MCH [27.0-32.0 pg] 28.5 pg (06/26/17 11:25 AM) MCHC [32.0-36.0 32.8 gm/dL gm/dL] (06/26/17 11:25 AM) RDW [11.5-14.5 %] 13.2 % (06/26/17 11:25 AM) Platelet [150-400 202 10*3/uL 10*3/uL] (06/26/17 11:25 AM) MPV [9.4-12.4 fL] 11.4 fL (06/26/17 11:25 AM) Coagulation Most recent to 1 oldest [Reference Range]: INR [0.9-1.2] 1.1 (06/26/17 6:29 AM) PTT [25.0-35.0 29.9 seconds seconds] (06/26/17 6:29 AM) Chemistry Most recent to 1 oldest [Reference Range]: Sodium Lvl [136-144 140 mEq/L mEq/L] (06/27/17 4:43 AM) Potassium Lvl 3.6 mEq/L [3.6-5.1 mEq/L] (06/27/17 4:43 AM) Chloride [99-109 112 mEq/L mEq/L] *HI* (06/27/17 4:43 AM) CO2 [22-32 mEq/L] 21 mEq/L *LOW* (06/27/17 4:43 AM) AGAP [3-20 mEq/L] 7 mEq/L (06/27/17 4:43 AM) BUN [4-20 mg/dL] 5 mg/dL (06/27/17 4:43 AM) Glucose Lvl [70-100 140 mg/dL mg/dL] *HI* (06/27/17 4:43 AM) Creatinine Lvl 0.52 mg/dL [0.44-1.03 mg/dL] (06/27/17 4:43 AM) eGFR [>60 mL/min] >60 mL/min 1 (06/27/17 4:43 AM) Calcium Lvl 8.0 mg/dL [8.6-10.0 mg/dL] *LOW* (06/27/17 4:43 AM) Albumin Lvl [3.5-4.8 3.8 gm/dL gm/dL] (06/26/17 6:29 AM) Total Protein 7.5 gm/dL [6.1-7.9 gm/dL] (06/26/17 6:29 AM) Globulin [1.9-4.3 3.7 gm/dL gm/dL] (06/26/17 6:29 AM) ALT [14-54 U/L] 485 U/L *HI* (06/26/17 6:29 AM) AST [15-41 U/L] 289 U/L *HI* (06/26/17 6:29 AM) Alk Phos [26-104 228 U/L U/L] *HI* (06/26/17 6:29 AM) Bili Total [0.2-1.2 0.9 mg/dL 2 mg/dL] (06/26/17 6:29 AM) U Beta hCG Ql Negative (06/26/17 6:29 AM) 1Result Comment: Multiply eGFR results by 1.21 for race. 2Result Comment: Naproxen, specifically the metabolite O-desmethylnaproxen, may cause spurious elevation in Total Bilirubin levels. Blood Bank Results Most recent to 1 oldest [Reference Range]: ABO/Rh B POS (06/26/17 6:29 AM) Antibody Screen Tube NEG (06/26/17 6:29 AM) Immunizations No data available for this section Procedures Procedure Date Related Diagnosis Body Site Status Nephrectomy Robotic1 06/26/17 Completed Caesarean section2 Completed Esophagoduodenostomy Completed 1auto-populated from documented surgical case , 2009, 2015 Social History Social History Type Response Smoking Status Never (less than 100 in lifetime) entered on: 06/26/17 Assessment and Plan No data available for this section
--- OUTSIDE RECORDS SUMMARY | 2017-10-23 09:56 | XMS REPORT | Referral Summary ---
Author Author [facility] Organization [facility] Address Unknown Phone Unavailable Care Team Providers Care Cup Setter Lockstitch Name Role Phone PROVIDER, NOTINSYSTEM PCP Unavailable Encounter [facility] [id number] Date(s): 05/12/17 - 05/12/17 [facility] [address] [place] [address]- Discharge Diagnosis: Left renal mass Discharge Disposition: -Home or Self Care Attending Physician: Alan Aponte MD Admitting Physician: Alan Aponte MD Vital Signs No data available for this section Problem List No data available for this section Allergies, Adverse Reactions, Alerts No Known Medication Allergies Medications pantoprazole 40 mg oral delayed release tablet mg tabs, Oral, Daily, 0 Refill(s) Start Date: 05/12/17 Status: Ordered Results No data available for this section Immunizations No data available for this section Procedures No data available for this section Social History No data available for this section Assessment and Plan Extracted from: Title: Office Visit Note Author: Alan Aponte MD Date: 05/12/17 Left renal mass I seen the patient with a plaster form maker. Idiscussed the CT scan findingswith the patient. Explained to her that she has an enhancing neoplasm in the left kidney. More than 80 percent of the tumors of this natureor cancerous. Some of themcould be benignlike an oncocytoma or angiomyolipoma. Explained to her that tumors of this nature are typically managed with surgerywhich would includepartial nephrectomywith robotic assistance. There is no role for chemotherapy or radiation. I also discussed the option of active surveillance although that was notideal considering her very young ageand good health. Possible risk of radical nephrectomy,open conversionduring surgery were explained. All the risks including bleeding requiring transfusion,injury to colon, spleenpancreas and its consequences,risk of heart attack strokeembolism and even were discussed with her. I gave her a chance to ask several questions which I answeredusing the cigar roller. I also encouraged her to lose some weight with exercise and diet prior to her surgery. We will schedule this in the near future.
--- NOTE | 2017-11-05 11:17 | Discharge Summary ---
Diagnosis/Chief Complaint Date of Admission 10/20/2017 Date of Discharge 10/21/2017 Admission Diagnosis Admission Diagnosis Acute Cholecystitis with cholelithiasis Discharge Diagnosis Choledochalithiasis with obstruction Reason Hospital Visit Surgery asked to see regarding RUQ pain. HPI per ED: Here with report of right upper abdominal pain that's been going on for 2 days and this is associated with vomiting. Pain worse with eating. Sometimes it comes and goes but now is been staying and is moderate in intensity. Denies fevers, diarrhea or dysuria. All information via full service supervisor line. Timing/Duration: 2-3 Days Severity/Quality: Moderate, Severe, Aching Location: RUQ Radiation: Back Activities at Onset: None Modifying Factors: Worsens With Eating; Improves With Resting Associated Symptoms: Back Pain; No Chest Pain, No Fever/Chills; Nausea/Vomiting ; No Shortness of Air, No Weakness When I saw pt this am she is reporting her pain as 9 out of 10. She states she did have some nausea but no vomiting. Pain is worse with fatty foods. Radiates to her back and is sharp. Discharge Summary Procedures: Lap Eze with IOC Discharge Physical Examination Allergies: Coded Allergies: NKANo Known Allergies (Verified Allergy, Mild, 10/21/17) General Appearance: Alert, Oriented X3 Respiratory: Clear to Auscultation, Normal Air Movement Cardiovascular: Regular Rate, Normal S1, Normal S2 Hospital Course Pt presented to ER, admitted overnight for planned Lap eze the next day. Lap eze performed on 10/21 with finding of Choledochalithiasis with obstruction. She was subsequently transferred to [facility] in [place] for ERCP on the same day as surgery. Discharge Instructions to patient/family Please see electronic discharge instructions given to patient. Discharge Medications Reviewed and agree with Discharge Medication list on patient's Discharge Instruction sheet Clinical Quality Measures DVT/VTE Risk/Contraindication: Risk Factor Score Per Nursin RFS Level Per Nursing on Admit: 1=Low/No VTE PPBABITA JONES DO Nov 05, 2017 11:17
== END 2017-10-21 21:45 | disposition short-term general hospital (02) ==
LOC: EDUNIT# 22:52 → ER 22:53 → 4TH 22:55 → SDC 22:55 → UNDOADMOB 10-21 01:28 → 4TH 10-21 01:28 → SDC 10-21 21:45 → UNDODISOB 10-21 21:45
PROVIDERS: ATTEND Surgery
DX: K80.66 Calculus of gallbladder and bile duct with acute and chronic cholecystitis without obstruction (principal); E66.01 Morbid (severe) obesity due to excess calories; Z68.41 Body mass index [BMI] 40.0-44.9, adult
CPT/HCPCS: 36415; 76705; 80053; 82150; 83690; 84703; 85025; 96361; 96374; 96375; G0378

== ENCOUNTER 2017-10-28 08:35 | Outpatient (RCR) | payer OTHER ==
[2017-10-28 09:18] LABS: ALANINE AMINOTRANSFERASE 78 U/L (0-55); ALKALINE PHOSPHATASE 139 U/L (40-136); BILIRUBIN,TOTAL 0.6 MG/DL (0.1-1.0); BUN/CREATININE RATIO 19; CALCIUM 8.8 MG/DL (8.5-10.1); CARBON DIOXIDE 21 MMOL/L (21-32); CHLORIDE 109 MMOL/L (98-107); CREATININE SERUM 0.59 MG/DL (0.60-1.30); GFR ESTIMATED > 60; GLUCOSE 109 MG/DL (70-105); SODIUM 138 MMOL/L (135-145); TOTAL PROTEIN 7.5 GM/DL (6.4-8.2)
== END 2017-11-10 | disposition home or self-care (01) ==
LOC: LAB 08:35
PROVIDERS: ATTEND Student in an Organized Health Care Education/Training Program
DX: R79.89 Other specified abnormal findings of blood chemistry (principal)
CPT/HCPCS: 36415; 80053

== ENCOUNTER → 2017-12-12 | Outpatient (CLI) | payer SELFPAY ==
[2017-12-12 09:55] LABS: BUN/CREATININE RATIO 21; CARBON DIOXIDE 17 MMOL/L (21-32); CHLORIDE 111 MMOL/L (98-107); CREATININE SERUM 0.61 MG/DL (0.60-1.30); GFR ESTIMATED > 60; GLUCOSE 123 MG/DL (70-105); POTASSIUM 3.9 MMOL/L (3.6-5.0); SODIUM 139 MMOL/L (135-145)
== END ==
LOC: LAB 09:22
PROVIDERS: ATTEND Urology
DX: C64.2 Malignant neoplasm of left kidney, except renal pelvis (principal)
CPT/HCPCS: 36415; 80048

== ENCOUNTER → 2019-01-17 | Outpatient (CLI) | payer SELFPAY ==
[~2019-01-17] MED LIST changes: +HOLD METFORMIN - RECEIVED CONTRAST 20 ML VIAL IV SCH
[2019-01-17 16:47] LABS: GFR ESTIMATED > 60
[2019-01-17] MEDS: IOHEXOL 350 MG/ML 100 ML (OMNIPAQUE 350) VIAL IV ONE (16:57)
[2019-01-17] MEDS: CATHETER FLUSH 10 ML SYR IV PRN (16:58)
[2019-01-17] MEDS: NS 100 ML (IVPB) BAG IV ONE (16:58)
--- NOTE | 2019-01-17 17:21 | Diagnostic Imaging Report ---
PROCEDURE: CT abdomen with and without contrast. TECHNIQUE: Multiple contiguous axial CT images of the abdomen were obtained prior to and after intravenous administration of iodinated contrast. Auto Exposure Controls were utilized during the CT exam to meet ALARA standards for radiation dose reduction. INDICATION: Renal mass. FINDINGS: Lung bases are clear. Liver appears normal. Gallbladder is surgically absent. Pancreas is normal. Spleen is not enlarged. Adrenals are normal. There is a small defect on the anterosuperior margin of the left kidney, unchanged from 01/15/2018. Right kidney is normal. There is no retroperitoneal lymphadenopathy. IMPRESSION: Postoperative changes from partial nephrectomy of the left kidney. No acute abnormality seen. Dictated by: Dictated on workstation # [id number]
== END ==
LOC: RAD 16:02
PROVIDERS: ATTEND Urology
DX: C64.9 Malignant neoplasm of unspecified kidney, except renal pelvis (principal); Z90.5 Acquired absence of kidney; Z90.49 Acquired absence of other specified parts of digestive tract
CPT/HCPCS: 36415; 74170; 82565